=== PATIENT | female | born 1990 | race Caucasian/White ===

== ENCOUNTER 2019-05-10 12:28 | Emergency (ER) | payer OTHER ==
[~2019-05-10] VITALS: Ht 180.3 cm; Wt 92.8 kg
[2019-05-10 12:47] VITALS: BP 138/66
[2019-05-10] MEDS ORDERED: [UNRECOGNIZED DRUG - OTHER] PO (12:54)
[2019-05-10] MEDS ORDERED: AMOX500C25 PO (12:54)
[2019-05-10] MEDS ORDERED: TAM75 PO (12:54)
[2019-05-10] MEDS ORDERED: IBUP-2213 PO (12:54)
--- NOTE | 2019-05-10 13:34 | NUR ---
28/F presents ambulatory to ED, c/o lower abd pain, bloating, n/v/d, x2 days. Was seen at urgent care 2 days ago, was given Rx tamiflu, amoxicillin, ibuprofen and cough medicine. Reports resolved fever and bodyaches and cough. Pt denies dysuria. Pt awake and alert, skin normal color warm and dry, rr even and unlabored. Lung sounds clear BL. BS hyperactive x4, abd soft round only tender to lower abd. Denies med hx; 4 months post-.
--- NOTE | 2019-05-10 15:56 | NUR ---
Pt laying in bed, rr even and unlabored. VSS. Reports tolerable lower abd pain at this time. All needs met.
[2019-05-10 16:20] VITALS: BP 112/62
--- NOTE | 2019-05-10 16:20 | NUR ---
Patient discharged with v/s stable. Written and verbal after care instructions given and explained. Patient alert, oriented and verbalized understanding of instructions. Ambulatory with steady gait. All questions addressed prior to discharge. ID band removed. Patient advised to follow up with PMD. Rx of NORCO, ZOFRAN, FLAGYL, CIPRO given. Patient educated on indication of medication including possible reaction and side effects. Opportunity to ask questions provided and answered.
== END 2019-05-10 16:20 | disposition home or self-care (01) ==
LOC: MED 12:28
DX: K52.9 Noninfective gastroenteritis and colitis, unspecified (principal); Z79.899 Other long term (current) drug therapy
CPT/HCPCS: 81002; 81025; 99284